=== PATIENT | female | born 1950 | race Caucasian/White ===

== ENCOUNTER → 2020-10-22 | Outpatient (CLI) | payer OTHER, MEDICARE ==
[~2020-10-22] VITALS: Ht 152.4 cm; Wt 72.6 kg
[~2020-10-22] MED LIST: ANACIN 400-321 EACH PO; FAMOTIDINE40 MG PO; IMITREX 25 MG T25 MG PO; NASACORT10.8 ML NASAL; PROTONIX40 M2 PO; VIACTIV 650 MG1 EACH PO; VITAMIN D325 MC3 PO
--- NOTE | ~2020-10-22 | P ---
[facility] [place] [address] PROCEDURE REPORT Name: JOSE URIBE Room #: REG NENASanthosh Calderon#: [id number] Admission: 10/22/20 Attend Phys: Elijah Trammell Discharge: Date of : 48 Report #: [id number] THIS REPORT FOR: cc: Ivone Jimenez MD,Elijah Guillen MD, MD ~ DOC #: [id number] cc: Ivone Jimenez MD, Francy Newberry MD PhD Elijah Ramirez MD DATE OF SERVICE: 10/22/2020 PROCEDURE PERFORMED: Colonoscopy with biopsies. HISTORY OF PRESENT ILLNESS: The patient is a 70-year-old female who reports two episodes of bright red blood per rectum with clots, first one in July of this year, second several weeks ago. The second one lasting approximately 2-3 days. First one was evaluated in the Emergency Room, thought to be a diverticular bleed. No scan at that time. No true abdominal pain, although some cramping at times. She denies any diarrhea or constipation in general. Last colonoscopy was approximately 3 years ago, diverticulosis was noted 30 years ago, had an episode of perforated diverticulitis requiring a temporary colostomy at that time apparently. No family history of colon cancer or inflammatory bowel disease. DESCRIPTION OF PROCEDURE: The risks and benefits of the procedure were explained to the patient, those risks including but not limited to bleeding, perforation and the risk of sedation. She understood these risks and gave informed consent. Sedation was given using propofol per anesthesia. Next, a digital rectal exam was initially performed, which was normal. Next, using a standard Olympus colonoscope, the scope was placed in the patient's anus and advanced under direct vision to the cecum. The overall prep was good. The cecum and ileocecal valve were normal in appearance. Terminal ileum was intubated and normal in appearance. A few small scattered diverticula were noted in the ascending colon. No evidence of inflammation, otherwise normal. The transverse colon was normal. Multiple scattered diverticula were noted in the descending and sigmoid colon. No evidence of inflammation or bleeding, otherwise normal. In the rectum, there was a single 3-mm sessile polyp. This was removed with cold forceps. On retroflexion, no abnormalities were noted. Anal canal was normal. The scope was then withdrawn and the procedure terminated. The patient tolerated the procedure well. IMPRESSION: 1. Diverticulosis, mild in the ascending colon, more significant in the descending and sigmoid colon. No evidence of active bleeding. 2. Small rectal polyp. [address] [address] PROCEDURE REPORT Name: JOSE URIBE KENNA Room #: REG DANY Calderon#: [id number] Admission: 10/22/20 Attend Phys: Elijah Trammell Discharge: Date of : 48 Report #: [id number] 3. Otherwise, normal colonoscopy. RECOMMENDATIONS: 1. Await biopsy results. 2. Recommend high-fiber diet. 3. Suspect recent bleeding was secondary to diverticular bleed. She has had 2 episodes at this time. If rebleeding in the future, may need to consider nuclear medicine scan or even a surgical resection. Thank you for allowing me to participate in her care. Elijah Ramirez MD [facility] By: 0950 30 Elijah Ramirez MD /nt
--- NOTE | 2020-10-24 19:07 | PATH ---
[facility] [address] [place] [address] PATHOLOGY RPT PROCEDURE Name: AMEE URIBE Room #: REG [facility] Kellie.#: [id number] Admission: 10/22/20 Date of : 48 Discharge: Report #: [id number] Path Case #: [id number] [facility] Accession Number: [id number] . 01 Material submitted: . rectum - RECTAL POLYP . 01 Clinical history: . COLONOSCOPY RECTAL BLEEDING DIVERTICULOSIS, POLYP . 02 Diagnosis: Polyp, rectal polyp, endoscopic biopsy: - Superficial fragments showing features compatible with hyperplastic polyp. - Negative for dysplasia. (IUV:pit; 10/24/2020) QTP 10/24/2020 1521 Local . 02 Electronically signed: . Arabella Hinkle MD, Pathologist NPI- [id number] . 01 Gross description: . Received in formalin labeled "Uribe, Amee and rectal polyp". Received are 2 rodriguez-brown soft tissue fragments ranging from 0.2-0.3 cm. The specimen is entirely submitted in cassette A1.(J; 10/23/2020) BLJ/J 10/23/2020 2044 Local . 02 Pathologist provided ICD-10: Z12.11, K92.1, K57.90 . 02 CPT . 766669 Specimen Comment: A courtesy copy of this report has been sent to [phone], [phone] Specimen Comment: [id number] Specimen Comment: Report sent to / DR LOMAX Performed at: [address], [place], [place] [id number] MD Braxton Betancur MD Phone: [phone] Performed at: [address] [id number] MD Arabella Hinkle MD Phone: [phone]
== END | disposition home or self-care (01) ==
LOC: GI 09:02 → OR 09:04 → GI 09:18 → OR 11:41
PROVIDERS: ATTEND Specialist
DX: K92.1 Melena (principal); K62.1 Rectal polyp; K57.30 Diverticulosis of large intestine without perforation or abscess without bleeding; K21.9 Gastro-esophageal reflux disease without esophagitis; G43.909 Migraine, unspecified, not intractable, without status migrainosus; Z98.890 Other specified postprocedural states; Z79.899 Other long term (current) drug therapy; Z90.710 Acquired absence of both cervix and uterus; Z88.2 Allergy status to sulfonamides; Z88.6 Allergy status to analgesic agent; Z88.8 Allergy status to other drugs, medicaments and biological substances
CPT/HCPCS: 62110; 62900